=== PATIENT | female | born 1945 ===

== ENCOUNTER 2022-08-26 09:45 | Inpatient (IN) | payer OTHER ==
[2022-08-26] MEDS ORDERED: PLAVIX75 MG PO (15:53)
[2022-08-26] MEDS ORDERED: SYNTHROID137 MCG PO (15:53)
[2022-08-26] MEDS ORDERED: PROTONIX40 MG PO (15:54)
[2022-08-26] MEDS ORDERED: HORIZANT600 MG PO (15:54)
[2022-08-26] MEDS ORDERED: PEPCID AC20 MG PO (15:54)
[2022-08-26] MEDS ORDERED: LANTUS SOL100 UNIT/1 (15:54)
[2022-08-26] MEDS ORDERED: LIPITOR20 MG PO (15:55)
[2022-08-26] MEDS ORDERED: CRESTOR10 MG PO (15:55)
[2022-08-26] MEDS ORDERED: LYRICA50 MG PO (15:55)
[2022-08-26] MEDS ORDERED: CLONAZEPAM0.5 MG PO (15:56)
[2022-08-26] MEDS ORDERED: RESTORIL15 MG PO (15:56)
[2022-08-26] MEDS ORDERED: ZESTRIL20 MG PO (15:56)
[2022-08-26] MEDS ORDERED: ZOLOFT50 MG PO (15:57)
[2022-09-01] MEDS ORDERED: GABAPENTIN600 MG (13:19)
[2022-09-01] MEDS ORDERED: PREGABALIN75 MG (13:19)
[2022-09-01] MEDS ORDERED: DOXEPIN HCL75 MG (13:19)
[2022-09-01] MEDS ORDERED: FENOFIBRATE54 MG (13:19)
[2022-09-01] MEDS ORDERED: VITAMIN D3250 MCG (13:20)
[2022-09-10] MEDS ORDERED: LOSARTAN POTASS25 MG PO (15:02)
[2022-09-10] MEDS ORDERED: CLONIDINE HCL0.1 MG PO (15:02)
[2022-09-10] MEDS ORDERED: ALBUTEROL2.5 MG/3 M IH (15:02)
[2022-09-10] MEDS ORDERED: NIFEDIPINE ER60 MG PO (15:02)
[2022-09-10] MEDS ORDERED: ELIQUIS2.5 MG PO (15:02)
[2022-09-11] MEDS ORDERED: ELIQUIS2.5 MG PO (08:37)
[2022-09-11] MEDS ORDERED: ULTRACET PO (08:37)
== END 2022-09-11 11:37 | disposition home or self-care (01) | DRG 469 ==
LOC: O/R 09-01 06:37 → ICU 09-01 06:37 → SURG 09-01 09:45 → PED 09-02 11:40 → O/R 09-02 11:49 → ICU 09-02 21:35 → SURG 09-07 18:21
PROVIDERS: ADMIT Orthopaedic Surgery; ATTEND Orthopaedic Surgery
PROC: 0SRC0J9 Replacement of Right Knee Joint with Synthetic Substitute, Cemented, Open Approach (ICD-10-PCS; principal; 2022-09-01 17:30)
PROC: 5A09457 Assistance with Respiratory Ventilation, 24-96 Consecutive Hours, Continuous Positive Airway Pressure (ICD-10-PCS; 2022-09-04)
PROC: B24BZZZ Ultrasonography of Heart with Aorta (ICD-10-PCS; 2022-09-05)
PROC: 4A12X4Z Monitoring of Cardiac Electrical Activity, External Approach (ICD-10-PCS; 2022-09-07)
DX: M17.11 Unilateral primary osteoarthritis, right knee (principal); J95.821 Acute postprocedural respiratory failure; E66.2 Morbid (severe) obesity with alveolar hypoventilation; D62 Acute posthemorrhagic anemia; E87.29 Other acidosis; J44.1 Chronic obstructive pulmonary disease with (acute) exacerbation; J90 Pleural effusion, not elsewhere classified; F03.94 Unspecified dementia, unspecified severity, with anxiety; M22.11 Recurrent subluxation of patella, right knee; E03.9 Hypothyroidism, unspecified; G25.0 Essential tremor; G20 Parkinson's disease; Z96.651 Presence of right artificial knee joint; I12.9 Hypertensive chronic kidney disease with stage 1 through stage 4 chronic kidney disease, or unspecified chronic kidney disease; N18.9 Chronic kidney disease, unspecified; Z20.822 Contact with and (suspected) exposure to COVID-19; E78.5 Hyperlipidemia, unspecified